=== PATIENT | male | born 1985 | race Caucasian/White ===

== ENCOUNTER 2020-07-15 15:32 | Emergency (ER) | payer SELFPAY ==
[~2020-07-15] VITALS: Ht 188 cm; Wt 118.0 kg
[2020-07-15 15:32] VITALS: BP 177/100
--- NOTE | 2020-07-15 16:07 | PHYS DOC ---
General Adult EDM: Chief Complaint: CHEST PAIN HPI: HPI: History obtained for the patient. Patient is a 34-year-old male with no reported PMH who presents with chief complaint of shortness of breath and left arm heaviness. Patient states he has had the symptoms occurred twice over the past 3 days. He states for some occurred after eating vegetarian chili 2 nights ago. He states the symptoms lasted a few minutes and resolve on their own. He states 1 hour prior to arrival while conversing with his father he suddenly developed some chest heaviness, shortness of breath and left arm tingling. He states in route he became more anxious and developed rapid breathing and his left arm heaviness seem to worsen. Denies any exertional chest pain or shortness of breath at baseline. Denies cough or fevers. Denies syncope. Denies any history of swelling to the legs bilaterally. Denies any history of blood clot in legs or lungs. Denies any family history of cardiac disease at young age. Does state that he did notice symptoms shortly after eating [employer] today. Denies back pain. Denies drug or tobacco abuse. Denies history of anxiety. No other complaints. Review of Systems: Review of Systems: Constitutional: Denies fever or chills. [] Eyes: Denies change in visual acuity. [] HENT: Denies nasal congestion or sore throat. [] Respiratory: Positive for shortness of breath Cardiovascular: Denies chest pain or edema. [] GI: Denies abdominal pain, nausea, vomiting, bloody stools or diarrhea. [] : Denies dysuria. [] Musculoskeletal: Denies back pain or joint pain. [] Integument: Denies rash. [] Neurologic: Denies headache, focal weakness or sensory changes. [] Endocrine: Denies polyuria or polydipsia. [] Lymphatic: Denies swollen glands. [] Psychiatric: Denies depression or anxiety. [] Heart Score: HEART Score for Chest Pain: HEART Score for Chest Pain Response (Comments) Value History Slighlty/Non-Suspicious 0 ECG Nonspecific Repolarizatio 1 Age < 45 0 Risk Factors No Risk Factors 0 Troponin < Normal Limit 0 Total 1 Risk Factors: Risk Factors: DM, Current or recent (<one month) smoker, HTN, HLP, family history of CAD, obesity. Risk Scores: Score 0 - 3: 2.5% MACE over next 6 weeks - Discharge Home Score 4 - 6: 20.3% MACE over next 6 weeks - Admit for Clinical Observation Score 7 - 10: 72.7% MACE over next 6 weeks - Early Invasive Strategies Physical Exam: PE: Constitutional: Well developed, well nourished, no acute distress, non-toxic appearance. [] HENT: Normocephalic, atraumatic, bilateral external ears normal, oropharynx moist, no oral exudates, nose normal. [] Eyes: PERRLA, EOMI, conjunctiva normal, no discharge. [] Neck: Normal range of motion, no tenderness, supple, no stridor. [] Cardiovascular:Heart rate regular rhythm, no murmur [] Lungs & Thora soft, no tenderness, no masses, no pulsatile masses. [] Skin: Warm, dry, no erythema, no rash. [] Back: No tenderness, no CVA tenderness. [] Extremities: No tenderness, no cyanosis, no clubbing, ROM intact, no edema. [] Neurologic: Alert and oriented X 3, normal motor function, normal sensory function, no focal deficits noted. [] Psychologic: Affect normal, judgement normal, mood normal. [] Current Patient Data: Labs: Laboratory Tests Test 07/15/20 16:00 White Blood Count 5.2 x10^3/uL Red Blood Count 5.12 x10^6/uL Hemoglobin 15.9 g/dL Hematocrit 44.7 % Mean Corpuscular Volume 87 fL Mean Corpuscular Hemoglobin 31 pg Mean Corpuscular Hemoglobin Concent 36 g/dL Red Cell Distribution Width 12.8 % Platelet Count 286 x10^3/uL Neutrophils (%) (Auto) 61 % Lymphocytes (%) (Auto) 31 % Monocytes (%) (Auto) 6 % Eosinophils (%) (Auto) 1 % Basophils (%) (Auto) 1 % Neutrophils # (Auto) 3.2 x10^3/uL Lymphocytes # (Auto) 1.6 x10^3/uL Monocytes # (Auto) 0.3 x10^3/uL Eosinophils # (Auto) 0.0 x10^3/uL Basophils # (Auto) 0.0 x10^3/uL D-Dimer (Annie) 0.33 ug/mlFEU Sodium Level 137 mmol/L Potassium Level 3.8 mmol/L Chloride Level 103 mmol/L Carbon Dioxide Level 26 mmol/L Anion Gap 8 Blood Urea Nitrogen 15 mg/dL Creatinine 1.1 mg/dL Estimated GFR (Cockcroft-Gault) 76.2 BUN/Creatinine Ratio 14 Glucose Level 132 mg/dL Calcium Level 9.5 mg/dL Total Bilirubin 0.5 mg/dL Aspartate Amino Transf (AST/SGOT) 27 U/L Alanine Aminotransferase (ALT/SGPT) 40 U/L Alkaline Phosphatase 84 U/L Troponin I Quantitative < 0.017 ng/mL Total Protein 7.4 g/dL Albumin 4.1 g/dL Albumin/Globulin Ratio 1.2 Lipase 105 U/L Vital Signs: Vital Signs Date Time Temp Pulse Resp B/P (MAP) Pulse Ox O2 Delivery O2 Flow Rate FiO2 07/15/20 15:32 98.7 72 17 177/100 (125) 100 Room Air 98.7 EKG: EKG: [] EKG consistent with normal sinus rhythm. Ventricular rate of 66 bpm. Hopkins normal. Intervals normal. No acute ischemic changes noted. Radiology/Procedures: Radiology/Procedures: [facility] [address] [place] [address] IMAGING REPORT Signed PATIENT: BLAKE KHANNA ACCOUNT: [id number] : 1985 LOCATION: ER AGE: 34 SEX: M EXAM STATUS: PRE ER ORD. PHYSICIAN: ELOY MCDOWELL DO REASON: CP PROCEDURE: CHEST AP ONLY Exam: Chest one view INDICATION: Chest pain TECHNIQUE: Frontal view of the chest Comparisons: None FINDINGS: The cardiomediastinal silhouette and pulmonary vessels are within normal limits. The lung and pleural spaces are clear. IMPRESSION: No acute cardiopulmonary process. Electronically signed by: Sheryl Ogden MD (07/15/2020 4:22 PM) [id number] DICTATED and SIGNED BY: SHERYL OGDEN MD DATE: 07/15/20 162 [] Course & Med Decision Making: Course & Med Decision Making Pertinent Labs and Imaging studies reviewed. (See chart for details) [] Patient is a very pleasant 34-year-old male who presents with chief complaint of intermittent shortness of breath. He denies any ana chest pain or back pain. Initial EKG shows no acute ischemic changes. Chest x-ray nonacute. Basic labs were obtained and were unremarkable. Negative troponin. Although patient does not meet any PERC criteria given his complaint of not breathing correctly d-dimer was obtained. This was negative. I do estimate him to be low risk Wells criteria therefore CT PE study will be deferred. Repeat examination he continues to deny chest pain or back pain. He does state that his breathing does not feel quite back to baseline however. Repeat lung auscultation is clear bilaterally. Normal oxygenation on room air. Slightly elevated blood pressure but non-tachycardic. Overall low suspicion for emergent etiology regarding the patient's symptoms. Patient was encouraged to report back to the emergency department in the next 12 to 24 hours should his symptoms not improve or worsen. He will be given referrals to primary care physicians for further follow-up. Patient and at bedside are agreeable to this plan. Return precautions discussed and understood. Stable for discharge home. Libby Disclaimer: Libby Disclaimer: This electronic medical record was generated, in whole or in part, using a voice recognition dictation system. Departure Departure Impression: Primary Impression: Shortness of breath Disposition: 01 DC HOME SELF CARE/HOMELESS Condition: STABLE Patient Instructions: Shortness of Breath Additional Instructions: Please follow-up with your primary care physician next week. [facility] [address] [place] [address] [facility] [address] [place] [address] [facility] [address] [facility] [place] [address] [facility] [address] [place] [address] [facility] [address] [place] [address] [address] [place] [address] [address] [place] [address] [facility] [address] [place] [address] [facility] [address] [place] [address] [facility] [address] [place] [address] ELOY MCDOWELL DO Jul 15, 2020 16:07
[2020-07-15 16:20] LABS: BASO % 1 % (0-3); EOS % 1 % (0-3); HEMATOCRIT 44.7 % (39.0-53.0); HEMOGLOBIN 15.9 g/dL (13.0-17.5); LYMPH # 1.6 x10^3/uL (1.0-4.8); LYMPH % 31 % (24-48); MEAN CORPUSCULAR HEMOGLOBIN 31 pg (25-35); MEAN CORPUSCULAR HGB CONC 36 g/dL (31-37); MEAN CORPUSCULAR VOLUME 87 fL (79-100); MONO # 0.3 x10^3/uL (0.0-1.1); MONO % 6 % (0-9); NEUT # 3.2 x10^3/uL (1.8-7.7); NEUT % 61 % (31-73); PLATELET COUNT 286 x10^3/uL (140-400); RED BLOOD COUNT 5.12 x10^6/uL (4.30-5.70); RED CELL DISTRIBUTION WIDTH 12.8 % (11.5-14.5); WHITE BLOOD COUNT 5.2 x10^3/uL (4.0-11.0)
--- NOTE | 2020-07-15 16:25 | RAD ---
Exam: Chest one view INDICATION: Chest pain TECHNIQUE: Frontal view of the chest Comparisons: None FINDINGS: The cardiomediastinal silhouette and pulmonary vessels are within normal limits. The lung and pleural spaces are clear. IMPRESSION: No acute cardiopulmonary process. Electronically signed by: Sheryl Guillen MD (07/15/2020 4:22 PM) [id number]
[2020-07-15 16:28] LABS: CALCIUM 9.5 mg/dL (8.5-10.1); CREATININE 1.1 mg/dL (0.7-1.3); GFR 76.2; POTASSIUM 3.8 mmol/L (3.5-5.1)
[2020-07-15 16:34] LABS: ALBUMIN 4.1 g/dL (3.4-5.0); ALBUMIN/GLOBULIN RATIO 1.2 (1.0-1.7); TOTAL BILIRUBIN 0.5 mg/dL (0.2-1.0); TOTAL PROTEIN 7.4 g/dL (6.4-8.2)
--- NOTE | 2020-07-16 05:43 | EKG ---
[facility] [address] [place] [address] Test Date: 2020-07-15 Test Time: 15:44:13 Pat Name: BLAKE KHANNA Department: Room: Gender: M Heel Stiffener: : 1985 Requested By: ELOY MCDOWELL Order Number: [id number] Reading MD: Measurements Intervals [place] Rate: 66 P: MA: QRS: 35 QRSD: 92 T: 61 QT: 386 QTc: 406 Interpretive Statements IRREGULAR RHYTHM, NO P-WAVE FOUND NO SPECIFIC ECG ABNORMALITIES RI6.02 No previous ECG available for comparison
== END 2020-07-15 18:05 | disposition home or self-care (01) ==
LOC: ER 15:32
DX: R06.02 Shortness of breath (principal)
CPT/HCPCS: 36415; 71045; 80053; 83690; 84484; 85025; 85379; 93005; 99285